=== PATIENT | female | born 1990 | race Caucasian/White ===

== ENCOUNTER 2016-05-29 15:54 | Emergency (ER) | payer BC, OTHER ==
[2016-05-29] MEDS ORDERED: KETOROLAC 30 MG/ML VIAL (J1885) As Ordered ONE (16:47)
[2016-05-29] MEDS ORDERED: ONDANSETRON 4MG/2ML VIAL (J2405) As Ordered ONE (16:47)
[2016-05-29 17:39] LABS: BASO % 0.2 % (0.0-1.0); EOS # 0.1 K/mm3 (0.0-0.50); LARGE UNSTAINED CELL # 0.1 K/mm3 (0.0-0.4); LARGE UNSTAINED CELL % 1.5 % (0.0-4.0); LYMPH # 1.4 K/mm3 (1.5-6.5); MEAN CORPUSCULAR HEMOGLOBIN 32.2 pg (27.0-33.0); MEAN CORPUSCULAR HGB CONC 35.8 g/dl (32.0-36.5); MEAN CORPUSCULAR VOLUME 90.1 fl (80.0-96.0); MONO # 0.3 K/mm3 (0.0-0.8); MONO % 4.7 % (0.0-5.0); NEUTROPHILS # 3.5 K/mm3 (1.8-7.7); NEUTROPHILS % 65.6 % (36.0-66.0); PLATELET COUNT, AUTOMATED 191 k/mm3 (150-450); RED CELL DISTRIBUTION WIDTH 12.3 % (11.5-14.5); WHITE BLOOD COUNT 5.3 K/mm3 (4.0-10.0)
[2016-05-29 18:09] LABS: ALBUMIN 3.8 GM/DL (3.2-5.2); ALBUMIN/GLOBULIN RATIO 1.12 (1.00-1.93); ALKALINE PHOSPHATASE 68 U/L (45-117); ALT/SGPT 21 U/L (12-78); AMYLASE 41 U/L (25-115); ANION GAP 9 MEQ/L (8-16); AST/SGOT 14 U/L (15-37); BILIRUBIN,DIRECT 0.1 MG/DL (0.0-0.2); BILIRUBIN,TOTAL 0.4 MG/DL (0.2-1.0); BLOOD UREA NITROGEN 10 MG/DL (7-18); CALCIUM LEVEL 8.9 MG/DL (8.5-10.1); CARBON DIOXIDE LEVEL 24 MEQ/L (21-32); CHLORIDE LEVEL 110 MEQ/L (98-107); CREATININE FOR GFR 0.85 MG/DL (0.55-1.02); GLOMERULAR FILTRATION RATE > 60.0 (>60); GLUCOSE, FASTING 103 MG/DL (70-105); POTASSIUM SERUM 4.1 MEQ/L (3.5-5.1); SODIUM LEVEL 143 MEQ/L (136-145); TOTAL PROTEIN 7.2 GM/DL (6.4-8.2)
--- NOTE | 2016-05-29 18:30 | REP ---
RIGHT UPPER QUADRANT ULTRASOUND: Real-time sonographic evaluation of the right upper extremity is performed. The gallbladder demonstrates no evidence of intraluminal sludge or calculi, wall thickening or pericholecystic fluid. There is no intrahepatic or extrahepatic biliary dilatation, common bile duct measuring 2 mm in diameter. Liver and pancreas demonstrate no gross mass, pancreas is not optimally seen due to overlying bowel gas. Right kidney demonstrates no hydronephrosis or nephrolithiasis with normal size at 9.4 cm in length. IMPRESSION: Negative right upper quadrant ultrasound. Signed by Javi Pandya MD 05/29/2016 07:17 P
--- NOTE | 2016-05-29 18:33 | EDDOCDS ---
Physician Documentation [facility] Name: Piedad Smith Age: 25 yrs Sex: Female : 1990 Arrival Date: 05/29/2016 Time: 15:54 Bed I6 / 28 Private MD: Marielle Black Disposition: 05/29/16 18:19 Discharged to Home/Self Care. Impression: Other abdominal pain - Right-sided. - Condition is Stable. - Discharge Instructions: Abdominal Pain, Adult, [id number]-[id number]. - Prescriptions for Bentyl 20 mg Oral Tablet - take 1 tablet by ORAL route every 6 hours As needed; 20 tablet. Naprosyn 500 mg Oral Tablet - take 1 tablet by ORAL route 2 times per day take with food; 30 tablet. ZOFRAN ODT 4 mg - dissolve 1 tablet by ORAL route 4 times per day As needed do not chew, do not swallow whole; 10 tablet. - Medication Reconciliation, Local Pharmacy Hours form. - Follow up: Marielle Black; When: 1 - 2 days; Reason: Recheck today's complaints, Continuance of care. Follow up: Emergency Department; Reason: Worsening of conditions. Follow up: Javi Quintanilla; When: Call to arrange an appointment; Reason: Further diagnostic work-up, Recheck today's complaints, Continuance of care. - Problem is new. - Symptoms have improved. Historical: - Allergies: Tofranil (Hives); Ditropan (Hives); Ceclor (Hives); Amoxicillin (Hives); - Home Meds: 1. venlafaxine 75 mg oral tab 1 tab once daily (Last dose: 05/27/2016) - PMHx: Colitis; - PSHx: none; - Social history: Smoking status: Patient uses tobacco products, current every day smoker. No barriers to communication noted, The patient speaks fluent Greek, Speaks appropriately for age. - Family history: Not pertinent. - : The pt / caregiver states he / she is not on anticoagulants. Home medication list is obtained from the patient. - Exposure Risk Screening:: None identified. 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 11 in. (149.86 cm) (R); 18:03 BP 107 / 73; Pulse 77; Resp 18; Temp 98.3(O); Pulse Ox 99% on R/A; Pain 0/10; kc3 15:55 Body Mass Index 29.29 (65.77 kg, 149.86 cm) dd6 MDM: 16:34 NS 0.9% 1000 ml IV at bolus once ordered. ef1 16:34 Ondansetron 4 mg IVP once ordered. ef1 16:34 ketorolac 30 mg IVP once ordered. ef1 16:34 IV Saline Lock ordered. ef1 16:34 Undress patient appropriately for examination ordered. ef1 16:34 UCG by Nursing ordered. ef1 16:35 Amylase Ordered. EDMS 16:35 Basic Metabolic Profile Ordered. EDMS 16:35 CBC with Diff Ordered. EDMS 16:35 Lipase Ordered. EDMS 16:35 Liver Profile Ordered. EDMS 16:35 Urinalysis Ordered. EDMS 16:35 Urine Culture Ordered. EDMS 16:35 Gallbladder US Ordered. EDMS 16:36 CT ABD & PELVIS: No Contrast Ordered. EDMS 16:36 NOTHING BY MOUTH+DIET ordered. EDMS 17:03 [facility] [place] was scanned into [employer] and attached to record. dm19 17:03 Financial registration complete. dm19 17:56 CBC with Diff Reviewed. ef1 17:56 Urinalysis Reviewed. ef1 18:15 Basic Metabolic Profile Reviewed. ef1 18:15 Liver Profile Reviewed. ef1 18:15 Amylase Reviewed. ef1 18:15 Lipase Reviewed. ef1 Point of Care Testing: Urine : 16:47 hCG Reading: Negative; Control Reading: Positive; rs6 Ranges: Administered Medications: 17:15 Drug: NS 0.9% 1000 ml [sodium chloride 0.9 % injection solution] Route: IV; Rate: dsf bolus; Site: right antecubital; 18:29 Follow up: IV Status: Infusion discontinued kc3 17:16 Drug: Ondansetron 4 mg [ondansetron HCl 2 mg/mL intravenous solution (2 mL)] Route: dsf IVP; Site: right antecubital; 17:16 Drug: ketorolac 30 mg [ketorolac 30 mg/mL (1 mL) injection solution (1 mL)] Route: IVP; dsf Site: right antecubital; Signatures: Dispatcher [employer] Daniela Mak PA-C PA-C ef1 Chantal GonsalezRN RN Simona Vanegas RN RN kc3 Grace Resendiz dm19 Valeria Chavez RN dsf The chart was reviewed and I authenticate all verbal orders and agree with the evaluation and treatment provided.Attachments: 17:03 [facility] Payment Agreement dm19 MTDD
--- NOTE | 2016-05-29 18:33 | EDDOCDS ---
Nurse's Notes [facility] Name: Piedad Smith Age: 25 yrs Sex: Female : 1990 Arrival Date: 05/29/2016 Time: 15:54 Bed I6 Private MD: Marielle Black Diagnosis: Other abdominal [id number] Presentation: 05/29 15:56 Presenting complaint: Patient states: pt c/o right sided abdominal pain, onset six ead months ago, worsening today. reports nausea, denies vomiting. Risk factors: the patient reports no vaginal bleeding. Adult Sepsis Screening: The patient does not have new or worsening altered mentation. Patient's respiratory rate is less than 22. Systolic blood pressure is greater than 100. Patient has a qSOFA score of 0- Negative Sepsis Screen. Suicide/Homicide risk assessment- the patient denies having any suicidal and/or homicidal ideations and does not present with any other emotional, behavioral or mental health complaints. Status: Patient is not a service car driver or dependent. Transition of care: patient was not received from another setting of care. 15:56 Acuity: SAM Level 3 ead 15:56 Method Of Arrival: Walkin/Carried/Asstd ead Triage Assessment: 15:57 General: Appears in no apparent distress, Behavior is appropriate for age, cooperative. ead Pain: Location: abdomen Pain currently is 5 out of 10 on a pain scale. HIV screening NA for this visit Offered previously. Neurological: No deficits noted. Respiratory: Airway is patent Respiratory effort is even, unlabored. GI: Reports lower abdominal pain, nausea. : Denies burning with urination, pain with urination vaginal bleeding. Derm: Skin is pink, warm & dry. 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 venlafaxine 75 mg oral tab 1 tab once daily (Last dose: 05/27/2016) - PMHx: Colitis; - PSHx: none; - Social history: Smoking status: Patient uses tobacco products, current every day smoker. No barriers to communication noted, The patient speaks fluent Belgian, Speaks appropriately for age. - Family history: Not pertinent. - : The pt / caregiver states he / she is not on anticoagulants. Home medication list is obtained from the patient. - Exposure Risk Screening:: None identified. Screenin:29 Screening information is obtained from the patient. Fall risk: No risks identified. kc3 Assistance ADL's: requires no assistance with activities of daily living. Abuse/DV Screen: The patient / caregiver reports he/she is: not in a situation that causes fear, pain or injury. Nutritional screening: No deficits noted. Advance Directives: Currently, there is no health care proxy. home support is adequate. Assessment: 17:28 General: Appears in no apparent distress, comfortable, Behavior is appropriate for age, kc3 cooperative. Pain: Location: right upper quadrant Pain currently is 4 out of 10 on a pain scale. Neurological: Level of Consciousness is awake, alert, obeys commands, Oriented to person, place, time. Respiratory: Respiratory effort is even, unlabored. GI: Abdomen is flat, Bowel sounds present X 4 quads. Abd is soft and non tender X 4 quads. Reports nausea, vomiting. Derm: Skin is pink, warm & dry. 17:56 Adult Sepsis Screening: The patient does not have new or worsening altered mentation. kc3 Patient's respiratory rate is less than 22. Systolic blood pressure is greater than 100. Patient has a qSOFA score of 0- Negative Sepsis Screen. 18:30 General: Appears in no apparent distress, comfortable, Behavior is appropriate for age, kc3 cooperative. Pain: Denies pain. Neurological: Level of Consciousness is awake, alert, obeys commands, Oriented to person, place, time. Respiratory: Respiratory effort is even, unlabored. Derm: Skin is pink, warm & dry. Vital Signs: 15:55 BP 154 / 82; Pulse 82; Resp 18 S; Temp 97.7(O); Pulse Ox 100% on R/A; Weight 65.77 kg dd6 (R); Height 4 ft. 11 in. (149.86 cm) (R); 18:03 BP 107 / 73; Pulse 77; Resp 18; Temp 98.3(O); Pulse Ox 99% on R/A; Pain 0/10; kc3 15:55 Body Mass Index 29.29 (65.77 kg, 149.86 cm) dd6 Vitals: 15:55 Log In Time: May 29, 2016 at 15:53. dd6 ED Course: 15:55 Patient visited by Owen Chavez PCA. dd6 15:55 Marielle Black is Private Physician. dd6 15:55 Patient moved to Waiting dd6 15:56 Patient moved to Pre RCE dd6 15:57 Triage Initiated ead 15:59 Patient moved to Triage 1 ead 16:21 Daniela Lopez [facility]-C [facility]. ef1 16:21 Antonette Cruz MD is Attending Physician. ef1 16:21 Patient visited by Daniela Lopez PA-C. ef1 16:42 Urinalysis Sent. rs6 16:42 Urine Culture Sent. rs6 16:43 Patient moved to 24 ttb 16:44 Patient moved to I6 / 28 dsf 16:46 Patient moved to Ultrasound hgl 16:47 Patient visited by Dilcia Pat PCA. rs6 16:58 Patient moved to I6 / 28 hgl 17:03 [facility] Payment Agreement was scanned into [employer] and attached to record. dm19 17:16 Inserted saline lock: 20 gauge in right antecubital area The patient tolerated the dsf procedure well. 17:28 Patient visited by Simona Khan RN. kc3 17:28 Amylase Sent. kc3 17:28 Basic Metabolic Profile Sent. kc3 17:28 CBC with Diff Sent. kc3 17:28 Lipase Sent. kc3 17:28 Liver Profile Sent. kc3 17:30 Patient visited by Simona Khan RN. kc3 17:30 The patient / caregiver is instructed regarding the plan of care and ED course. kc3 17:55 Patient visited by Daniela Lopez PA-C. ef1 18:04 Patient visited by Simona Khan RN. kc3 18:19 Marielle Black is Referral Physician. ef1 18:19 Javi Quintanilla DO is Referral Physician. ef1 18:30 Discontinued IV lock intact, bleeding controlled, pressure dressing applied, No kc3 redness/swelling at site. No procedures done that require assistance. Administered Medications: 17:15 Drug: NS 0.9% 1000 ml [sodium chloride 0.9 % injection solution] Route: IV; Rate: dsf bolus; Site: right antecubital; 18:29 Follow up: IV Status: Infusion discontinued kc3 17:16 Drug: Ondansetron 4 mg [ondansetron HCl 2 mg/mL intravenous solution (2 mL)] Route: dsf IVP; Site: right antecubital; 17:16 Drug: ketorolac 30 mg [ketorolac 30 mg/mL (1 mL) injection solution (1 mL)] Route: IVP; dsf Site: right antecubital; Point of Care Testing: Urine : 16:47 hCG Reading: Negative; Control Reading: Positive; rs6 Ranges: Order Results: Lab Order: Amylase; SPEC'M 05/29/16 17:23 Test: AMYLASE; Value: 41; Range: 25-115; Units: U/L; Status: F Lab Order: Basic Metabolic Profile; SPEC'M 05/29/16 17:23 Test: GLUCOSE, FASTING; Value: 103; Range: 70-105; Units: MG/DL; Status: F Test: BLOOD UREA NITROGEN; Value: 10; Range: 7-18; Units: MG/DL; Status: F Test: CREATININE FOR GFR; Value: 0.85; Range: 0.55-1.02; Units: MG/DL; Status: F Test: GLOMERULAR FILTRATION RATE; Value: > 60.0; Range: >60; Status: F Test: SODIUM LEVEL; Value: 143; Range: 136-145; Units: MEQ/L; Status: F Test: POTASSIUM SERUM; Value: 4.1; Range: 3.5-5.1; Units: MEQ/L; Status: F Test: CHLORIDE LEVEL; Value: 110; Range: 98-107; Abnormal: Above high normal; Units: MEQ/L; Status: F Test: CARBON DIOXIDE LEVEL; Value: 24; Range: 21-32; Units: MEQ/L; Status: F Test: ANION GAP; Value: 9; Range: 8-16; Units: MEQ/L; Status: F Test: CALCIUM LEVEL; Value: 8.9; Range: 8.5-10.1; Units: MG/DL; Status: F Test Note: ; Units are mL/min/1.73 m2 Chronic Kidney Disease Staging per NKF: Stage I & II GFR >=60 Normal to Mildly Decreased Stage III GFR 30-59 Moderately Decreased Stage IV GFR 15-29 Severely Decreased Stage V GFR <15 Very Little GFR Left ESRD GFR <15 on SOCIAL INSURANCE ADVISER Lab Order: CBC with Diff; SPEC'M 05/29/16 17:23 Test: WHITE BLOOD COUNT; Value: 5.3; Range: 4.0-10.0; Units: K/mm3; Status: F Test: RED BLOOD COUNT; Value: 4.39; Range: 4.00-5.40; Units: M/mm3; Status: F Test: HEMOGLOBIN; Value: 14.1; Range: 12.0-16.0; Units: g/dl; Status: F Test: HEMATOCRIT; Value: 39.5; Range: 36.0-47.0; Units: %; Status: F Test: MEAN CORPUSCULAR VOLUME; Value: 90.1; Range: 80.0-96.0; Units: fl; Status: F Test: MEAN CORPUSCULAR HEMOGLOBIN; Value: 32.2; Range: 27.0-33.0; Units: pg; Status: F Test: MEAN CORPUSCULAR HGB CONC; Value: 35.8; Range: 32.0-36.5; Units: g/dl; Status: F Test: RED CELL DISTRIBUTION WIDTH; Value: 12.3; Range: 11.5-14.5; Units: %; Status: F Test: PLATELET COUNT, AUTOMATED; Value: 191; Range: 150-450; Units: k/mm3; Status: F Test: NEUTROPHILS %; Value: 65.6; Range: 36.0-66.0; Units: %; Status: F Test: LYMPH %; Value: 26.0; Range: 24.0-44.0; Units: %; Status: F Test: MONO %; Value: 4.7; Range: 0.0-5.0; Units: %; Status: F Test: EOS %; Value: 2.0; Range: 0.0-3.0; Units: %; Status: F Test: BASO %; Value: 0.2; Range: 0.0-1.0; Units: %; Status: F Test: LARGE UNSTAINED CELL %; Value: 1.5; Range: 0.0-4.0; Units: %; Status: F Test: NEUTROPHILS #; Value: 3.5; Range: 1.8-7.7; Units: K/mm3; Status: F Test: LYMPH #; Value: 1.4; Range: 1.5-6.5; Abnormal: Below low normal; Units: K/mm3; Status: F Test: MONO #; Value: 0.3; Range: 0.0-0.8; Units: K/mm3; Status: F Test: EOS #; Value: 0.1; Range: 0.0-0.50; Units: K/mm3; Status: F Test: BASO #; Value: 0.0; Range: 0.0-0.2; Units: K/mm3; Status: F Test: LARGE UNSTAINED CELL #; Value: 0.1; Range: 0.0-0.4; Units: K/mm3; Status: F Lab Order: Lipase; [facility] 05/29/16 17:23 Test: LIPASE; Value: 101; Range: 73-393; Units: U/L; Status: F Lab Order: Liver Profile; [facility] 05/29/16 17:23 Test: AST/SGOT; Value: 14; Range: 15-37; Abnormal: Below low normal; Units: U/L; Status: F Test: ALT/SGPT; Value: 21; Range: 12-78; Units: U/L; Status: F Test: ALKALINE PHOSPHATASE; Value: 68; Range: 45-117; Units: U/L; Status: F Test: BILIRUBIN,TOTAL; Value: 0.4; Range: 0.2-1.0; Units: MG/DL; Status: F Test: BILIRUBIN,DIRECT; Value: 0.1; Range: 0.0-0.2; Units: MG/DL; Status: F Test: TOTAL PROTEIN; Value: 7.2; Range: 6.4-8.2; Units: GM/DL; Status: F Test: ALBUMIN; Value: 3.8; Range: 3.2-5.2; Units: GM/DL; Status: F Test: ALBUMIN/GLOBULIN RATIO; Value: 1.12; Range: 1.00-1.93; Status: F Lab Order: Urinalysis; [facility] 05/29/16 16:41 Test: APPEARANCE, URINE; Value: CLEAR; Range: CLEAR; Status: F Test: COLOR, URINE; Value: STRAW; Range: YELLOW; Status: F Test: PH,URINE; Value: 7.0; Range: 5.0-9.0; Units: UNITS; Status: F Test: SPECIFIC GRAVITY URINE AUTO; Value: 1.011; Range: 1.002-1.035; Status: F Test: PROTEIN, URINE AUTO; Value: NEGATIVE; Range: NEGATIVE; Units: mg/dL; Status: F Test: GLUCOSE, URINE (UA) AUTO; Value: NEGATIVE; Range: NEGATIVE; Units: mg/dL; Status: F Test: KETONE, URINE AUTO; Value: NEGATIVE; Range: NEGATIVE; Units: mg/dL; Status: F Test: UROBILINOGEN, URINE AUTO; Value: 0.2; Range: 0.0-2.0; Units: mg/dL; Status: F Test: BILIRUBIN, URINE AUTO; Value: NEGATIVE; Range: NEGATIVE; Status: F Test: NITRITE, URINE AUTO; Value: NEGATIVE; Range: NEGATIVE; Status: F Test: LEUKOCYTE ESTERASE, URINE AUTO; Value: NEGATIVE; Range: NEGATIVE; Status: F Test: BLOOD, URINE BLOOD; Value: 1+; Range: NEGATIVE; Abnormal: Above high normal; Status: F Test: WBC, URINE AUTO; Value: 1; Range: 0-3; Units: /HPF; Status: F Test: RBC, URINE AUTO; Value: 1; Range: 0-3; Units: /HPF; Status: F Test: BACTERIA, URINE AUTO; Value: NEGATIVE; Range: NEGATIVE; Status: F Test: SQUAMOUS EPITHELIAL CELL UR AU; Value: 1; Range: 0-6; Units: /HPF; Status: F Test: HYALINE CAST, URINE AUTO; Value: 0; Range: 0-1; Units: /LPF; Status: F Outcome: 17:30 CT Study completed. Ultrasound Study completed. kc3 18:19 Discharge ordered by Provider. ef1 18:30 Discharge Assessment: Patient awake, alert and oriented x 3. No cognitive and/or kc3 functional deficits noted. Patient verbalized understanding of disposition instructions. patient administered narcotics - no. 18:31 The following High Risk Discharge criteria are identified: None. Discharged to home. kc3 Condition: stable. Discharge instructions given to patient, Instructed on discharge instructions, follow up and referral plans. medication usage, Demonstrated understanding of instructions, medications, Pt was receptive of discharge instructions/ teaching. Prescriptions given X 3. Property :Personal belongings accompany Pt. 18:31 Patient left the ED. kc3 Signatures: Owen Chavez, BENCH SHEAR OPERATOR BENCH SHEAR OPERATOR dd6 Daniela Lopez PA-C PA-C ef1 Valeria Chavez,RN RN nancyf Fran Lamb Teresa, RN RN Chantal Conroy,RN RN Dilcia Meyer, BENCH SHEAR OPERATOR BENCH SHEAR OPERATOR rs6 Simona Khan RN RN kc3 Grace Resendiz dm19 Corrections: (The following items were deleted from the chart) 18: 18:30 Discharge Assessment: Patient awake, alert and oriented x 3. No cognitive and/or kc3 functional deficits noted. Patient verbalized understanding of disposition instructions. patient administered narcotics - kc3 MTDD
--- NOTE | 2016-05-29 18:50 | REP ---
CT ABDOMEN AND PELVIS WITHOUT CONTRAST: TECHNIQUE: Axial noncontrast images through the abdomen followed by contrast-enhanced images through the abdomen and pelvis using 100 mL Isovue 370 intravenous contrast material, with coronal and sagittal reformations. Visualized lung bases are clear. The liver, spleen, adrenals, pancreas, kidneys and gallbladder are unremarkable. There is no evidence of hydroureteronephrosis. There is no evidence of renal, ureteral, or bladder calculus. There is no abdominal aortic aneurysm. There is no free air. There is no bowel wall thickening. There is no evidence of appendicitis. There is no gross pelvic mass. There is mild free fluid in the pelvis. Urinary bladder is very mildly distended and grossly unremarkable. Visualized osseous structures appear unremarkable. IMPRESSION: Mild free fluid in the pelvis, otherwise negative noncontrast CT abdomen and pelvis. No evidence of appendicitis. No evidence of renal, ureteral or bladder calculus and no hydroureteronephrosis. Signed by Javi Pandya MD 05/29/2016 07:17 P
--- NOTE | 2016-05-31 19:33 | EDDOCDS ---
Physician Documentation [facility] Name: Piedad Smith Age: 25 yrs Sex: Female : 1990 Arrival Date: 05/29/2016 Time: 15:54 Bed I6 / 28 Private MD: Marielle Black Disposition: 05/29/16 18:19 Discharged to Home/Self Care. Impression: Other abdominal pain - Right-sided. - Condition is Stable. - Discharge Instructions: Abdominal Pain, Adult, [id number]. - Prescriptions for Bentyl 20 mg Oral Tablet - take 1 tablet by ORAL route every 6 hours As needed; 20 tablet. Naprosyn 500 mg Oral Tablet - take 1 tablet by ORAL route 2 times per day take with food; 30 tablet. ZOFRAN ODT 4 mg - dissolve 1 tablet by ORAL route 4 times per day As needed do not chew, do not swallow whole; 10 tablet. - Medication Reconciliation, Local Pharmacy Hours form. - Follow up: Marielle Black; When: 1 - 2 days; Reason: Recheck today's complaints, Continuance of care. Follow up: Emergency Department; Reason: Worsening of conditions. Follow up: Javi Quintanilla; When: Call to arrange an appointment; Reason: Further diagnostic work-up, Recheck today's complaints, Continuance of care. - Problem is new. - Symptoms have improved. Historical: - Allergies: Tofranil (Hives); Ditropan (Hives); Ceclor (Hives); Amoxicillin (Hives); - Home Meds: 1. venlafaxine 75 mg oral tab 1 tab once daily (Last dose: 05/27/2016) - PMHx: Colitis; - PSHx: none; - Social history: Smoking status: Patient uses tobacco products, current every day smoker. No barriers to communication noted, The patient speaks fluent Croatian, Speaks appropriately for age. - Family history: Not pertinent. - : The pt / caregiver states he / she is not on anticoagulants. Home medication list is obtained from the patient. - Exposure Risk Screening:: None identified. 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 11 in. (149.86 cm) (R); 18:03 BP 107 / 73; Pulse 77; Resp 18; Temp 98.3(O); Pulse Ox 99% on R/A; Pain 0/10; kc3 15:55 Body Mass Index 29.29 (65.77 kg, 149.86 cm) dd6 MDM: 16:34 NS 0.9% 1000 ml IV at bolus once ordered. ef1 16:34 Ondansetron 4 mg IVP once ordered. ef1 16:34 ketorolac 30 mg IVP once ordered. ef1 16:34 IV Saline Lock ordered. ef1 16:34 Undress patient appropriately for examination ordered. ef1 16:34 UCG by Nursing ordered. ef1 16:35 Amylase Ordered. EDMS 16:35 Basic Metabolic Profile Ordered. EDMS 16:35 CBC with Diff Ordered. EDMS 16:35 Lipase Ordered. EDMS 16:35 Liver Profile Ordered. EDMS 16:35 Urinalysis Ordered. EDMS 16:35 Urine Culture Ordered. EDMS 16:35 Gallbladder US Ordered. EDMS 16:36 CT ABD & PELVIS: No Contrast Ordered. EDMS 16:36 NOTHING BY MOUTH+DIET ordered. EDMS 17:03 [facility] [place] Agreement was scanned into [employer] and attached to record. dm19 17:03 Financial registration complete. dm19 17:56 CBC with Diff Reviewed. ef1 17:56 Urinalysis Reviewed. ef1 18:15 Basic Metabolic Profile Reviewed. ef1 18:15 Liver Profile Reviewed. ef1 18:15 Amylase Reviewed. ef1 18:15 Lipase Reviewed. ef1 05/31 08:43 T-Sheet-- Draft Copy was scanned into [employer] and attached to record. gb Point of Care Testing: Urine : 05/29 16:47 hCG Reading: Negative; Control Reading: Positive; rs6 Ranges: Administered Medications: 17:15 Drug: NS 0.9% 1000 ml [sodium chloride 0.9 % injection solution] Route: IV; Rate: dsf bolus; Site: right antecubital; 18:29 Follow up: IV Status: Infusion discontinued kc3 17:16 Drug: Ondansetron 4 mg [ondansetron HCl 2 mg/mL intravenous solution (2 mL)] Route: dsf IVP; Site: right antecubital; 17:16 Drug: ketorolac 30 mg [ketorolac 30 mg/mL (1 mL) injection solution (1 mL)] Route: IVP; dsf Site: right antecubital; Signatures: Dispatcher [employer] EDMS Dennise Minaya, Reg Reg gb John, Daniela, YAMILETH PAMike ef1 Chantal Gonsalez RN RN Simona Vanegas RN RN kc3 Grace Resendiz dm19 Valeria Chavez RN dsf The chart was reviewed and I authenticate all verbal orders and agree with the evaluation and treatment provided.Attachments: 17:03 [facility] Payment Agreement dm19 05/31 08:43 T-Sheet-- Draft Copy gb Chart Complete MTDD
--- NOTE | 2016-05-31 19:33 | EDDOCDS ---
Nurse's Notes [facility] Name: Piedad Smith Age: 25 yrs Sex: Female : 1990 Arrival Date: 05/29/2016 Time: 15:54 Bed I6 Private MD: Marielle Black Diagnosis: Other abdominal onhq-[id number]-gyqqm Presentation: 05/29 15:56 Presenting complaint: Patient states: pt c/o right sided abdominal pain, onset six ead months ago, worsening today. reports nausea, denies vomiting. Risk factors: the patient reports no vaginal bleeding. Adult Sepsis Screening: The patient does not have new or worsening altered mentation. Patient's respiratory rate is less than 22. Systolic blood pressure is greater than 100. Patient has a qSOFA score of 0- Negative Sepsis Screen. Suicide/Homicide risk assessment- the patient denies having any suicidal and/or homicidal ideations and does not present with any other emotional, behavioral or mental health complaints. Status: Patient is not a service liaison representative or dependent. Transition of care: patient was not received from another setting of care. 15:56 Acuity: SAM Level 3 ead 15:56 Method Of Arrival: Walkin/Carried/Asstd ead Triage Assessment: 15:57 General: Appears in no apparent distress, Behavior is appropriate for age, cooperative. ead Pain: Location: abdomen Pain currently is 5 out of 10 on a pain scale. HIV screening NA for this visit Offered previously. Neurological: No deficits noted. Respiratory: Airway is patent Respiratory effort is even, unlabored. GI: Reports lower abdominal pain, nausea. : Denies burning with urination, pain with urination vaginal bleeding. Derm: Skin is pink, warm & dry. 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 venlafaxine 75 mg oral tab 1 tab once daily (Last dose: 05/27/2016) - PMHx: Colitis; - PSHx: none; - Social history: Smoking status: Patient uses tobacco products, current every day smoker. No barriers to communication noted, The patient speaks fluent Faroese, Speaks appropriately for age. - Family history: Not pertinent. - : The pt / caregiver states he / she is not on anticoagulants. Home medication list is obtained from the patient. - Exposure Risk Screening:: None identified. Screenin:29 Screening information is obtained from the patient. Fall risk: No risks identified. kc3 Assistance ADL's: requires no assistance with activities of daily living. Abuse/DV Screen: The patient / caregiver reports he/she is: not in a situation that causes fear, pain or injury. Nutritional screening: No deficits noted. Advance Directives: Currently, there is no health care proxy. home support is adequate. Assessment: 17:28 General: Appears in no apparent distress, comfortable, Behavior is appropriate for age, kc3 cooperative. Pain: Location: right upper quadrant Pain currently is 4 out of 10 on a pain scale. Neurological: Level of Consciousness is awake, alert, obeys commands, Oriented to person, place, time. Respiratory: Respiratory effort is even, unlabored. GI: Abdomen is flat, Bowel sounds present X 4 quads. Abd is soft and non tender X 4 quads. Reports nausea, vomiting. Derm: Skin is pink, warm & dry. 17:56 Adult Sepsis Screening: The patient does not have new or worsening altered mentation. kc3 Patient's respiratory rate is less than 22. Systolic blood pressure is greater than 100. Patient has a qSOFA score of 0- Negative Sepsis Screen. 18:30 General: Appears in no apparent distress, comfortable, Behavior is appropriate for age, kc3 cooperative. Pain: Denies pain. Neurological: Level of Consciousness is awake, alert, obeys commands, Oriented to person, place, time. Respiratory: Respiratory effort is even, unlabored. Derm: Skin is pink, warm & dry. Vital Signs: 15:55 BP 154 / 82; Pulse 82; Resp 18 S; Temp 97.7(O); Pulse Ox 100% on R/A; Weight 65.77 kg dd6 (R); Height 4 ft. 11 in. (149.86 cm) (R); 18:03 BP 107 / 73; Pulse 77; Resp 18; Temp 98.3(O); Pulse Ox 99% on R/A; Pain 0/10; kc3 15:55 Body Mass Index 29.29 (65.77 kg, 149.86 cm) dd6 Vitals: 15:55 Log In Time: May 29, 2016 at 15:53. dd6 ED Course: 15:55 Patient visited by Owen Chavez PCA. dd6 15:55 Marielle Black is Private Physician. dd6 15:55 Patient moved to Waiting dd6 15:56 Patient moved to Pre RCE dd6 15:57 Triage Initiated ead 15:59 Patient moved to Triage 1 ead 16:21 Daniela Lopez PA-C is PHCP. ef1 16:21 Antonette Cruz MD is Attending Physician. ef1 16:21 Patient visited by Daniela Lopez PA-C. ef1 16:42 Urinalysis Sent. rs6 16:42 Urine Culture Sent. rs6 16:43 Patient moved to 24 ttb 16:44 Patient moved to I6 / 28 dsf 16:46 Patient moved to Ultrasound hgl 16:47 Patient visited by Dilcia Pat PCA. rs6 16:58 Patient moved to I6 / 28 hgl 17:03 [facility] Payment Agreement was scanned into [employer] and attached to record. dm19 17:16 Inserted saline lock: 20 gauge in right antecubital area The patient tolerated the dsf procedure well. 17:28 Patient visited by Simona Khan RN. kc3 17:28 Amylase Sent. kc3 17:28 Basic Metabolic Profile Sent. kc3 17:28 CBC with Diff Sent. kc3 17:28 Lipase Sent. kc3 17:28 Liver Profile Sent. kc3 17:30 Patient visited by Simona Khan RN. kc3 17:30 The patient / caregiver is instructed regarding the plan of care and ED course. kc3 17:55 Patient visited by Daniela Lopez PA-C. ef1 18:04 Patient visited by Simona Khan RN. kc3 18:19 Marielle Black is Referral Physician. ef1 18:19 Javi Quintanilla DO is Referral Physician. ef1 18:30 Discontinued IV lock intact, bleeding controlled, pressure dressing applied, No kc3 redness/swelling at site. No procedures done that require assistance. 19:14 Gallbladder US Returned. EDMS 19:14 CT ABD & PELVIS: No Contrast Returned. EDMS 05/31 08:43 T-Sheet-- Draft Copy was scanned into [employer] and attached to record. gb Administered Medications: 05/29 17:15 Drug: NS 0.9% 1000 ml [sodium chloride 0.9 % injection solution] Route: IV; Rate: dsf bolus; Site: right antecubital; 18:29 Follow up: IV Status: Infusion discontinued kc3 17:16 Drug: Ondansetron 4 mg [ondansetron HCl 2 mg/mL intravenous solution (2 mL)] Route: dsf IVP; Site: right antecubital; 17:16 Drug: ketorolac 30 mg [ketorolac 30 mg/mL (1 mL) injection solution (1 mL)] Route: IVP; dsf Site: right antecubital; Point of Care Testing: Urine : 16:47 hCG Reading: Negative; Control Reading: Positive; rs6 Ranges: Order Results: Lab Order: Amylase; SPEC'M 05/29/16 17:23 Test: AMYLASE; Value: 41; Range: 25-115; Units: U/L; Status: F Lab Order: Basic Metabolic Profile; SPEC'M 05/29/16 17:23 Test: GLUCOSE, FASTING; Value: 103; Range: 70-105; Units: MG/DL; Status: F Test: BLOOD UREA NITROGEN; Value: 10; Range: 7-18; Units: MG/DL; Status: F Test: CREATININE FOR GFR; Value: 0.85; Range: 0.55-1.02; Units: MG/DL; Status: F Test: GLOMERULAR FILTRATION RATE; Value: > 60.0; Range: >60; Status: F Test: SODIUM LEVEL; Value: 143; Range: 136-145; Units: MEQ/L; Status: F Test: POTASSIUM SERUM; Value: 4.1; Range: 3.5-5.1; Units: MEQ/L; Status: F Test: CHLORIDE LEVEL; Value: 110; Range: 98-107; Abnormal: Above high normal; Units: MEQ/L; Status: F Test: CARBON DIOXIDE LEVEL; Value: 24; Range: 21-32; Units: MEQ/L; Status: F Test: ANION GAP; Value: 9; Range: 8-16; Units: MEQ/L; Status: F Test: CALCIUM LEVEL; Value: 8.9; Range: 8.5-10.1; Units: MG/DL; Status: F Test Note: ; Units are mL/min/1.73 m2 Chronic Kidney Disease Staging per NKF: Stage I & II GFR >=60 Normal to Mildly Decreased Stage III GFR 30-59 Moderately Decreased Stage IV GFR 15-29 Severely Decreased Stage V GFR <15 Very Little GFR Left ESRD GFR <15 on ENGINE SPECIALIST Lab Order: CBC with Diff; TITA'Jose 05/29/16 17:23 Test: WHITE BLOOD COUNT; Value: 5.3; Range: 4.0-10.0; Units: K/mm3; Status: F Test: RED BLOOD COUNT; Value: 4.39; Range: 4.00-5.40; Units: M/mm3; Status: F Test: HEMOGLOBIN; Value: 14.1; Range: 12.0-16.0; Units: g/dl; Status: F Test: HEMATOCRIT; Value: 39.5; Range: 36.0-47.0; Units: %; Status: F Test: MEAN CORPUSCULAR VOLUME; Value: 90.1; Range: 80.0-96.0; Units: fl; Status: F Test: MEAN CORPUSCULAR HEMOGLOBIN; Value: 32.2; Range: 27.0-33.0; Units: pg; Status: F Test: MEAN CORPUSCULAR HGB CONC; Value: 35.8; Range: 32.0-36.5; Units: g/dl; Status: F Test: RED CELL DISTRIBUTION WIDTH; Value: 12.3; Range: 11.5-14.5; Units: %; Status: F Test: PLATELET COUNT, AUTOMATED; Value: 191; Range: 150-450; Units: k/mm3; Status: F Test: NEUTROPHILS %; Value: 65.6; Range: 36.0-66.0; Units: %; Status: F Test: LYMPH %; Value: 26.0; Range: 24.0-44.0; Units: %; Status: F Test: MONO %; Value: 4.7; Range: 0.0-5.0; Units: %; Status: F Test: EOS %; Value: 2.0; Range: 0.0-3.0; Units: %; Status: F Test: BASO %; Value: 0.2; Range: 0.0-1.0; Units: %; Status: F Test: LARGE UNSTAINED CELL %; Value: 1.5; Range: 0.0-4.0; Units: %; Status: F Test: NEUTROPHILS #; Value: 3.5; Range: 1.8-7.7; Units: K/mm3; Status: F Test: LYMPH #; Value: 1.4; Range: 1.5-6.5; Abnormal: Below low normal; Units: K/mm3; Status: F Test: MONO #; Value: 0.3; Range: 0.0-0.8; Units: K/mm3; Status: F Test: EOS #; Value: 0.1; Range: 0.0-0.50; Units: K/mm3; Status: F Test: BASO #; Value: 0.0; Range: 0.0-0.2; Units: K/mm3; Status: F Test: LARGE UNSTAINED CELL #; Value: 0.1; Range: 0.0-0.4; Units: K/mm3; Status: F Lab Order: Lipase; SPEC'M 05/29/16 17:23 Test: LIPASE; Value: 101; Range: 73-393; Units: U/L; Status: F Lab Order: Liver Profile; SPEC'M 05/29/16 17:23 Test: AST/SGOT; Value: 14; Range: 15-37; Abnormal: Below low normal; Units: U/L; Status: F Test: ALT/SGPT; Value: 21; Range: 12-78; Units: U/L; Status: F Test: ALKALINE PHOSPHATASE; Value: 68; Range: 45-117; Units: U/L; Status: F Test: BILIRUBIN,TOTAL; Value: 0.4; Range: 0.2-1.0; Units: MG/DL; Status: F Test: BILIRUBIN,DIRECT; Value: 0.1; Range: 0.0-0.2; Units: MG/DL; Status: F Test: TOTAL PROTEIN; Value: 7.2; Range: 6.4-8.2; Units: GM/DL; Status: F Test: ALBUMIN; Value: 3.8; Range: 3.2-5.2; Units: GM/DL; Status: F Test: ALBUMIN/GLOBULIN RATIO; Value: 1.12; Range: 1.00-1.93; Status: F Lab Order: Urinalysis; SPEC'M 05/29/16 16:41 Test: APPEARANCE, URINE; Value: CLEAR; Range: CLEAR; Status: F Test: COLOR, URINE; Value: STRAW; Range: YELLOW; Status: F Test: PH,URINE; Value: 7.0; Range: 5.0-9.0; Units: UNITS; Status: F Test: SPECIFIC GRAVITY URINE AUTO; Value: 1.011; Range: 1.002-1.035; Status: F Test: PROTEIN, URINE AUTO; Value: NEGATIVE; Range: NEGATIVE; Units: mg/dL; Status: F Test: GLUCOSE, URINE (UA) AUTO; Value: NEGATIVE; Range: NEGATIVE; Units: mg/dL; Status: F Test: KETONE, URINE AUTO; Value: NEGATIVE; Range: NEGATIVE; Units: mg/dL; Status: F Test: UROBILINOGEN, URINE AUTO; Value: 0.2; Range: 0.0-2.0; Units: mg/dL; Status: F Test: BILIRUBIN, URINE AUTO; Value: NEGATIVE; Range: NEGATIVE; Status: F Test: NITRITE, URINE AUTO; Value: NEGATIVE; Range: NEGATIVE; Status: F Test: LEUKOCYTE ESTERASE, URINE AUTO; Value: NEGATIVE; Range: NEGATIVE; Status: F Test: BLOOD, URINE BLOOD; Value: 1+; Range: NEGATIVE; Abnormal: Above high normal; Status: F Test: WBC, URINE AUTO; Value: 1; Range: 0-3; Units: /HPF; Status: F Test: RBC, URINE AUTO; Value: 1; Range: 0-3; Units: /HPF; Status: F Test: BACTERIA, URINE AUTO; Value: NEGATIVE; Range: NEGATIVE; Status: F Test: SQUAMOUS EPITHELIAL CELL UR AU; Value: 1; Range: 0-6; Units: /HPF; Status: F Test: HYALINE CAST, URINE AUTO; Value: 0; Range: 0-1; Units: /LPF; Status: F Lab Order: Urine Culture; SPEC'M 05/29/16 16:41 Test: URINE CULTURE; Value: URINE CULTURE RESULT NO GROWTH; Status: F Radiology Order: CT ABD & PELVIS: No Contrast Test: CT ABD & PELVIS: No Contrast REASON FOR EXAMINATION: Right sided abd pain, diffuse; CT ABDOMEN AND PELVIS WITHOUT CONTRAST:; ; TECHNIQUE: Axial noncontrast images through the abdomen followed by; contrast-enhanced images through the abdomen and pelvis using 100 mL Isovue 370; intravenous contrast material, with coronal and sagittal reformations.; ; Visualized lung bases are clear. The liver, spleen, adrenals, pancreas, kidneys; and gallbladder are unremarkable. There is no evidence of hydroureteronephrosis.; There is no evidence of renal, ureteral, or bladder calculus. There is no; abdominal aortic aneurysm. There is no free air. There is no bowel wall; thickening. There is no evidence of appendicitis. There is no gross pelvic mass.; There is mild free fluid in the pelvis. Urinary bladder is very mildly distended; and grossly unremarkable. Visualized osseous structures appear unremarkable.; ; IMPRESSION:; ; Mild free fluid in the pelvis, otherwise negative noncontrast CT abdomen and; pelvis. No evidence of appendicitis. No evidence of renal, ureteral or bladder; calculus and no hydroureteronephrosis.; ; ; Signed by; Javi Pandya MD 05/29/2016 07:17 P; Radiology Order: Gallbladder US Test: Gallbladder US REASON FOR EXAMINATION: Biliary Colic; RIGHT UPPER QUADRANT ULTRASOUND:; ; Real-time sonographic evaluation of the right upper extremity is performed. The; gallbladder demonstrates no evidence of intraluminal sludge or calculi, wall; thickening or pericholecystic fluid. There is no intrahepatic or extrahepatic; biliary dilatation, common bile duct measuring 2 mm in diameter. Liver and; pancreas demonstrate no gross mass, pancreas is not optimally seen due to; overlying bowel gas. Right kidney demonstrates no hydronephrosis or; nephrolithiasis with normal size at 9.4 cm in length.; ; IMPRESSION:; ; Negative right upper quadrant ultrasound.; ; ; Signed by; Javi Pandya MD 05/29/2016 07:17 P; Outcome: 17:30 CT Study completed. Ultrasound Study completed. kc3 18:19 Discharge ordered by Provider. ef1 18:30 Discharge Assessment: Patient awake, alert and oriented x 3. No cognitive and/or kc3 functional deficits noted. Patient verbalized understanding of disposition instructions. patient administered narcotics - no. 18:31 The following High Risk Discharge criteria are identified: None. Discharged to home. kc3 Condition: stable. Discharge instructions given to patient, Instructed on discharge instructions, follow up and referral plans. medication usage, Demonstrated understanding of instructions, medications, Pt was receptive of discharge instructions/ teaching. Prescriptions given X 3. Property :Personal belongings accompany Pt. 18:31 Patient left the ED. kc3 Signatures: Dispatcher [employer] EDMS WendieDennise duke, Reg Reg gb Owen Chavez, SECOND CHEF SECOND CHEF dd6 Daniela Lopez, YAMILETH CARSON ef1 Valeria Chavez,RN RN dsf Zainab, Tania Holguin RN RN Chantal Conroy RN RN ead Schmitt, Rebecca, SECOND CHEF SECOND CHEF rs6 Simona Khan RN RN kc3 Grace Resendiz dm19 Corrections: (The following items were deleted from the chart) 18:31 18:30 Discharge Assessment: Patient awake, alert and oriented x 3. No cognitive and/or kc3 functional deficits noted. Patient verbalized understanding of disposition instructions. patient administered narcotics - kc3 Chart Complete MTDD
--- NOTE | 2016-05-31 19:33 | EDDOCDS ---
Physician Documentation [facility] Name: Piedad Smith Age: 25 yrs Sex: Female : 1990 Arrival Date: 05/29/2016 Time: 15:54 Bed I6 / 28 Private MD: Marielle Black Disposition: 05/29/16 18:19 Discharged to Home/Self Care. Impression: Other abdominal pain - Right-sided. - Condition is Stable. - Discharge Instructions: Abdominal Pain, Adult, [id number]. - Prescriptions for Bentyl 20 mg Oral Tablet - take 1 tablet by ORAL route every 6 hours As needed; 20 tablet. Naprosyn 500 mg Oral Tablet - take 1 tablet by ORAL route 2 times per day take with food; 30 tablet. ZOFRAN ODT 4 mg - dissolve 1 tablet by ORAL route 4 times per day As needed do not chew, do not swallow whole; 10 tablet. - Medication Reconciliation, Local Pharmacy Hours form. - Follow up: Marielle Black; When: 1 - 2 days; Reason: Recheck today's complaints, Continuance of care. Follow up: Emergency Department; Reason: Worsening of conditions. Follow up: Javi Quintanilla; When: Call to arrange an appointment; Reason: Further diagnostic work-up, Recheck today's complaints, Continuance of care. - Problem is new. - Symptoms have improved. Historical: - Allergies: Tofranil (Hives); Ditropan (Hives); Ceclor (Hives); Amoxicillin (Hives); - Home Meds: 1. venlafaxine 75 mg oral tab 1 tab once daily (Last dose: 05/27/2016) - PMHx: Colitis; - PSHx: none; - Social history: Smoking status: Patient uses tobacco products, current every day smoker. No barriers to communication noted, The patient speaks fluent Latvian, Speaks appropriately for age. - Family history: Not pertinent. - : The pt / caregiver states he / she is not on anticoagulants. Home medication list is obtained from the patient. - Exposure Risk Screening:: None identified. 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 11 in. (149.86 cm) (R); 18:03 BP 107 / 73; Pulse 77; Resp 18; Temp 98.3(O); Pulse Ox 99% on R/A; Pain 0/10; kc3 15:55 Body Mass Index 29.29 (65.77 kg, 149.86 cm) dd6 MDM: 16:34 NS 0.9% 1000 ml IV at bolus once ordered. ef1 16:34 Ondansetron 4 mg IVP once ordered. ef1 16:34 ketorolac 30 mg IVP once ordered. ef1 16:34 IV Saline Lock ordered. ef1 16:34 Undress patient appropriately for examination ordered. ef1 16:34 UCG by Nursing ordered. ef1 16:35 Amylase Ordered. EDMS 16:35 Basic Metabolic Profile Ordered. EDMS 16:35 CBC with Diff Ordered. EDMS 16:35 Lipase Ordered. EDMS 16:35 Liver Profile Ordered. EDMS 16:35 Urinalysis Ordered. EDMS 16:35 Urine Culture Ordered. EDMS 16:35 Gallbladder US Ordered. EDMS 16:36 CT ABD & PELVIS: No Contrast Ordered. EDMS 16:36 NOTHING BY MOUTH+DIET ordered. EDMS 17:03 [facility] [place] Payment Agreement was scanned into [employer] and attached to record. dm19 17:03 Financial registration complete. dm19 17:56 CBC with Diff Reviewed. ef1 17:56 Urinalysis Reviewed. ef1 18:15 Basic Metabolic Profile Reviewed. ef1 18:15 Liver Profile Reviewed. ef1 18:15 Amylase Reviewed. ef1 18:15 Lipase Reviewed. ef1 05/31 08:43 T-Sheet-- Draft Copy was scanned into [employer] and attached to record. gb Point of Care Testing: Urine : 05/29 16:47 hCG Reading: Negative; Control Reading: Positive; rs6 Ranges: Administered Medications: 17:15 Drug: NS 0.9% 1000 ml [sodium chloride 0.9 % injection solution] Route: IV; Rate: dsf bolus; Site: right antecubital; 18:29 Follow up: IV Status: Infusion discontinued kc3 17:16 Drug: Ondansetron 4 mg [ondansetron HCl 2 mg/mL intravenous solution (2 mL)] Route: dsf IVP; Site: right antecubital; 17:16 Drug: ketorolac 30 mg [ketorolac 30 mg/mL (1 mL) injection solution (1 mL)] Route: IVP; dsf Site: right antecubital; Signatures: Dispatcher [employer] EDMS Dennise Minaya, Reg Reg gb John, Danilea, YAMILETH PAMike ef1 Chantal Gonsalez RN RN Simona Vanegas RN RN kc3 Grace Resendiz dm19 Valeria Chavez RN dsf The chart was reviewed and I authenticate all verbal orders and agree with the evaluation and treatment provided.Attachments: 17:03 [facility] Payment Agreement dm19 05/31 08:43 T-Sheet-- Draft Copy gb Chart Complete MTDD
--- NOTE | 2016-06-04 09:18 | EDDOCDS ---
Nurse's Notes [facility] [facility] Name: Piedad Smith Age: 25 yrs Sex: Female : 1990 Arrival Date: 05/29/2016 Time: 15:54 Bed I6 Private MD: Marielle Black Diagnosis: Other abdominal [id number] Presentation: 05/29 15:56 Presenting complaint: Patient states: pt c/o right sided abdominal pain, onset six ead months ago, worsening today. reports nausea, denies vomiting. Risk factors: the patient reports no vaginal bleeding. Adult Sepsis Screening: The patient does not have new or worsening altered mentation. Patient's respiratory rate is less than 22. Systolic blood pressure is greater than 100. Patient has a qSOFA score of 0- Negative Sepsis Screen. Suicide/Homicide risk assessment- the patient denies having any suicidal and/or homicidal ideations and does not present with any other emotional, behavioral or mental health complaints. 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 Transition of care: patient was not received from another setting of care. 15:56 Acuity: SAM Level 3 ead 15:56 Method Of Arrival: Walkin/Carried/Asstd ead Triage Assessment: 15:57 General: Appears in no apparent distress, Behavior is appropriate for age, cooperative. ead Pain: Location: abdomen Pain currently is 5 out of 10 on a pain scale. HIV screening NA for this visit Offered previously. Neurological: No deficits noted. Respiratory: Airway is patent Respiratory effort is even, unlabored. GI: Reports lower abdominal pain, nausea. : Denies burning with urination, pain with urination vaginal bleeding. Derm: Skin is pink, warm & dry. 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 venlafaxine 75 mg oral tab 1 tab once daily (Last dose: 05/27/2016) - PMHx: Colitis; - PSHx: none; - Social history: Smoking status: Patient uses tobacco products, current every day smoker. No barriers to communication noted, The patient speaks fluent Mosotho, Speaks appropriately for age. - Family history: Not pertinent. - : The pt / caregiver states he / she is not on anticoagulants. Home medication list is obtained from the patient. - Exposure Risk Screening:: None identified. Screenin:29 Screening information is obtained from the patient. Fall risk: No risks identified. kc3 Assistance ADL's: requires no assistance with activities of daily living. Abuse/DV Screen: The patient / caregiver reports he/she is: not in a situation that causes fear, pain or injury. Nutritional screening: No deficits noted. Advance Directives: Currently, there is no health care proxy. home support is adequate. Assessment: 17:28 General: Appears in no apparent distress, comfortable, Behavior is appropriate for age, kc3 cooperative. Pain: Location: right upper quadrant Pain currently is 4 out of 10 on a pain scale. Neurological: Level of Consciousness is awake, alert, obeys commands, Oriented to person, place, time. Respiratory: Respiratory effort is even, unlabored. GI: Abdomen is flat, Bowel sounds present X 4 quads. Abd is soft and non tender X 4 quads. Reports nausea, vomiting. Derm: Skin is pink, warm & dry. 17:56 Adult Sepsis Screening: The patient does not have new or worsening altered mentation. kc3 Patient's respiratory rate is less than 22. Systolic blood pressure is greater than 100. Patient has a qSOFA score of 0- Negative Sepsis Screen. 18:30 General: Appears in no apparent distress, comfortable, Behavior is appropriate for age, kc3 cooperative. Pain: Denies pain. Neurological: Level of Consciousness is awake, alert, obeys commands, Oriented to person, place, time. Respiratory: Respiratory effort is even, unlabored. Derm: Skin is pink, warm & dry. Vital Signs: 15:55 BP 154 / 82; Pulse 82; Resp 18 S; Temp 97.7(O); Pulse Ox 100% on R/A; Weight 65.77 kg dd6 (R); Height 4 ft. 11 in. (149.86 cm) (R); 18:03 BP 107 / 73; Pulse 77; Resp 18; Temp 98.3(O); Pulse Ox 99% on R/A; Pain 0/10; kc3 15:55 Body Mass Index 29.29 (65.77 kg, 149.86 cm) dd6 Vitals: 15:55 Log In Time: May 29, 2016 at 15:53. dd6 ED Course: 15:55 Patient visited by Owen Chavez PCA. dd6 15:55 Marielle Black is Private Physician. dd6 15:55 Patient moved to Waiting dd6 15:56 Patient moved to Pre RCE dd6 15:57 Triage Initiated ead 15:59 Patient moved to Triage 1 ead 16:21 Daniela Lopez PA-C is PHCP. ef1 16:21 Antonette Cruz MD is Attending Physician. ef1 16:21 Patient visited by Daniela Lopez PA-C. ef1 16:42 Urinalysis Sent. rs6 16:42 Urine Culture Sent. rs6 16:43 Patient moved to 24 ttb 16:44 Patient moved to I6 / 28 dsf 16:46 Patient moved to Ultrasound hgl 16:47 Patient visited by Dilcia Pat PCA. rs6 16:58 Patient moved to I6 / 28 hgl 17:03 [facility] Payment Agreement was scanned into [employer] and attached to record. dm19 17:16 Inserted saline lock: 20 gauge in right antecubital area The patient tolerated the dsf procedure well. 17:28 Patient visited by Simona Khan RN. kc3 17:28 Amylase Sent. kc3 17:28 Basic Metabolic Profile Sent. kc3 17:28 CBC with Diff Sent. kc3 17:28 Lipase Sent. kc3 17:28 Liver Profile Sent. kc3 17:30 Patient visited by Simona Khan RN. kc3 17:30 The patient / caregiver is instructed regarding the plan of care and ED course. kc3 17:55 Patient visited by Daniela Lopez PA-C. ef1 18:04 Patient visited by Simona hKan RN. kc3 18:19 Marielle Black is Referral Physician. ef1 18:19 Javi Quintanilla DO is Referral Physician. ef1 18:30 Discontinued IV lock intact, bleeding controlled, pressure dressing applied, No kc3 redness/swelling at site. No procedures done that require assistance. 19:14 Gallbladder US Returned. EDMS 19:14 CT ABD & PELVIS: No Contrast Returned. EDMS 05/31 08:43 T-Sheet-- Draft Copy was scanned into [employer] and attached to record. gb Administered Medications: 05/29 17:15 Drug: NS 0.9% 1000 ml [sodium chloride 0.9 % injection solution] Route: IV; Rate: dsf bolus; Site: right antecubital; 18:29 Follow up: IV Status: Infusion discontinued kc3 17:16 Drug: Ondansetron 4 mg [ondansetron HCl 2 mg/mL intravenous solution (2 mL)] Route: dsf IVP; Site: right antecubital; 17:16 Drug: ketorolac 30 mg [ketorolac 30 mg/mL (1 mL) injection solution (1 mL)] Route: IVP; dsf Site: right antecubital; Point of Care Testing: Urine : 16:47 hCG Reading: Negative; Control Reading: Positive; rs6 Ranges: Order Results: Lab Order: Amylase; SPEC'M 05/29/16 17:23 Test: AMYLASE; Value: 41; Range: 25-115; Units: U/L; Status: F Lab Order: Basic Metabolic Profile; SPEC'M 05/29/16 17:23 Test: GLUCOSE, FASTING; Value: 103; Range: 70-105; Units: MG/DL; Status: F Test: BLOOD UREA NITROGEN; Value: 10; Range: 7-18; Units: MG/DL; Status: F Test: CREATININE FOR GFR; Value: 0.85; Range: 0.55-1.02; Units: MG/DL; Status: F Test: GLOMERULAR FILTRATION RATE; Value: > 60.0; Range: >60; Status: F Test: SODIUM LEVEL; Value: 143; Range: 136-145; Units: MEQ/L; Status: F Test: POTASSIUM SERUM; Value: 4.1; Range: 3.5-5.1; Units: MEQ/L; Status: F Test: CHLORIDE LEVEL; Value: 110; Range: 98-107; Abnormal: Above high normal; Units: MEQ/L; Status: F Test: CARBON DIOXIDE LEVEL; Value: 24; Range: 21-32; Units: MEQ/L; Status: F Test: ANION GAP; Value: 9; Range: 8-16; Units: MEQ/L; Status: F Test: CALCIUM LEVEL; Value: 8.9; Range: 8.5-10.1; Units: MG/DL; Status: F Test Note: ; Units are mL/min/1.73 m2 Chronic Kidney Disease Staging per NKF: Stage I & II GFR >=60 Normal to Mildly Decreased Stage III GFR 30-59 Moderately Decreased Stage IV GFR 15-29 Severely Decreased Stage V GFR <15 Very Little GFR Left ESRD GFR <15 on CONSTRUCTION TECHNOLOGY INSTRUCTOR Lab Order: CBC with Diff; TITA'Jose 05/29/16 17:23 Test: WHITE BLOOD COUNT; Value: 5.3; Range: 4.0-10.0; Units: K/mm3; Status: F Test: RED BLOOD COUNT; Value: 4.39; Range: 4.00-5.40; Units: M/mm3; Status: F Test: HEMOGLOBIN; Value: 14.1; Range: 12.0-16.0; Units: g/dl; Status: F Test: HEMATOCRIT; Value: 39.5; Range: 36.0-47.0; Units: %; Status: F Test: MEAN CORPUSCULAR VOLUME; Value: 90.1; Range: 80.0-96.0; Units: fl; Status: F Test: MEAN CORPUSCULAR HEMOGLOBIN; Value: 32.2; Range: 27.0-33.0; Units: pg; Status: F Test: MEAN CORPUSCULAR HGB CONC; Value: 35.8; Range: 32.0-36.5; Units: g/dl; Status: F Test: RED CELL DISTRIBUTION WIDTH; Value: 12.3; Range: 11.5-14.5; Units: %; Status: F Test: PLATELET COUNT, AUTOMATED; Value: 191; Range: 150-450; Units: k/mm3; Status: F Test: NEUTROPHILS %; Value: 65.6; Range: 36.0-66.0; Units: %; Status: F Test: LYMPH %; Value: 26.0; Range: 24.0-44.0; Units: %; Status: F Test: MONO %; Value: 4.7; Range: 0.0-5.0; Units: %; Status: F Test: EOS %; Value: 2.0; Range: 0.0-3.0; Units: %; Status: F Test: BASO %; Value: 0.2; Range: 0.0-1.0; Units: %; Status: F Test: LARGE UNSTAINED CELL %; Value: 1.5; Range: 0.0-4.0; Units: %; Status: F Test: NEUTROPHILS #; Value: 3.5; Range: 1.8-7.7; Units: K/mm3; Status: F Test: LYMPH #; Value: 1.4; Range: 1.5-6.5; Abnormal: Below low normal; Units: K/mm3; Status: F Test: MONO #; Value: 0.3; Range: 0.0-0.8; Units: K/mm3; Status: F Test: EOS #; Value: 0.1; Range: 0.0-0.50; Units: K/mm3; Status: F Test: BASO #; Value: 0.0; Range: 0.0-0.2; Units: K/mm3; Status: F Test: LARGE UNSTAINED CELL #; Value: 0.1; Range: 0.0-0.4; Units: K/mm3; Status: F Lab Order: Lipase; SPEC'M 05/29/16 17:23 Test: LIPASE; Value: 101; Range: 73-393; Units: U/L; Status: F Lab Order: Liver Profile; SPEC'M 05/29/16 17:23 Test: AST/SGOT; Value: 14; Range: 15-37; Abnormal: Below low normal; Units: U/L; Status: F Test: ALT/SGPT; Value: 21; Range: 12-78; Units: U/L; Status: F Test: ALKALINE PHOSPHATASE; Value: 68; Range: 45-117; Units: U/L; Status: F Test: BILIRUBIN,TOTAL; Value: 0.4; Range: 0.2-1.0; Units: MG/DL; Status: F Test: BILIRUBIN,DIRECT; Value: 0.1; Range: 0.0-0.2; Units: MG/DL; Status: F Test: TOTAL PROTEIN; Value: 7.2; Range: 6.4-8.2; Units: GM/DL; Status: F Test: ALBUMIN; Value: 3.8; Range: 3.2-5.2; Units: GM/DL; Status: F Test: ALBUMIN/GLOBULIN RATIO; Value: 1.12; Range: 1.00-1.93; Status: F Lab Order: Urinalysis; SPEC'M 05/29/16 16:41 Test: APPEARANCE, URINE; Value: CLEAR; Range: CLEAR; Status: F Test: COLOR, URINE; Value: STRAW; Range: YELLOW; Status: F Test: PH,URINE; Value: 7.0; Range: 5.0-9.0; Units: UNITS; Status: F Test: SPECIFIC GRAVITY URINE AUTO; Value: 1.011; Range: 1.002-1.035; Status: F Test: PROTEIN, URINE AUTO; Value: NEGATIVE; Range: NEGATIVE; Units: mg/dL; Status: F Test: GLUCOSE, URINE (UA) AUTO; Value: NEGATIVE; Range: NEGATIVE; Units: mg/dL; Status: F Test: KETONE, URINE AUTO; Value: NEGATIVE; Range: NEGATIVE; Units: mg/dL; Status: F Test: UROBILINOGEN, URINE AUTO; Value: 0.2; Range: 0.0-2.0; Units: mg/dL; Status: F Test: BILIRUBIN, URINE AUTO; Value: NEGATIVE; Range: NEGATIVE; Status: F Test: NITRITE, URINE AUTO; Value: NEGATIVE; Range: NEGATIVE; Status: F Test: LEUKOCYTE ESTERASE, URINE AUTO; Value: NEGATIVE; Range: NEGATIVE; Status: F Test: BLOOD, URINE BLOOD; Value: 1+; Range: NEGATIVE; Abnormal: Above high normal; Status: F Test: WBC, URINE AUTO; Value: 1; Range: 0-3; Units: /HPF; Status: F Test: RBC, URINE AUTO; Value: 1; Range: 0-3; Units: /HPF; Status: F Test: BACTERIA, URINE AUTO; Value: NEGATIVE; Range: NEGATIVE; Status: F Test: SQUAMOUS EPITHELIAL CELL UR AU; Value: 1; Range: 0-6; Units: /HPF; Status: F Test: HYALINE CAST, URINE AUTO; Value: 0; Range: 0-1; Units: /LPF; Status: F Lab Order: Urine Culture; SPEC'M 05/29/16 16:41 Test: URINE CULTURE; Value: URINE CULTURE RESULT NO GROWTH; Status: F Radiology Order: CT ABD & PELVIS: No Contrast Test: CT ABD & PELVIS: No Contrast REASON FOR EXAMINATION: Right sided abd pain, diffuse; CT ABDOMEN AND PELVIS WITHOUT CONTRAST:; ; TECHNIQUE: Axial noncontrast images through the abdomen followed by; contrast-enhanced images through the abdomen and pelvis using 100 mL Isovue 370; intravenous contrast material, with coronal and sagittal reformations.; ; Visualized lung bases are clear. The liver, spleen, adrenals, pancreas, kidneys; and gallbladder are unremarkable. There is no evidence of hydroureteronephrosis.; There is no evidence of renal, ureteral, or bladder calculus. There is no; abdominal aortic aneurysm. There is no free air. There is no bowel wall; thickening. There is no evidence of appendicitis. There is no gross pelvic mass.; There is mild free fluid in the pelvis. Urinary bladder is very mildly distended; and grossly unremarkable. Visualized osseous structures appear unremarkable.; ; IMPRESSION:; ; Mild free fluid in the pelvis, otherwise negative noncontrast CT abdomen and; pelvis. No evidence of appendicitis. No evidence of renal, ureteral or bladder; calculus and no hydroureteronephrosis.; ; ; Signed by; Javi Pandya MD 05/29/2016 07:17 P; Radiology Order: Gallbladder US Test: Gallbladder US REASON FOR EXAMINATION: Biliary Colic; RIGHT UPPER QUADRANT ULTRASOUND:; ; Real-time sonographic evaluation of the right upper extremity is performed. The; gallbladder demonstrates no evidence of intraluminal sludge or calculi, wall; thickening or pericholecystic fluid. There is no intrahepatic or extrahepatic; biliary dilatation, common bile duct measuring 2 mm in diameter. Liver and; pancreas demonstrate no gross mass, pancreas is not optimally seen due to; overlying bowel gas. Right kidney demonstrates no hydronephrosis or; nephrolithiasis with normal size at 9.4 cm in length.; ; IMPRESSION:; ; Negative right upper quadrant ultrasound.; ; ; Signed by; Javi Pandya MD 05/29/2016 07:17 P; Outcome: 17:30 CT Study completed. Ultrasound Study completed. kc3 18:19 Discharge ordered by Provider. ef1 18:30 Discharge Assessment: Patient awake, alert and oriented x 3. No cognitive and/or kc3 functional deficits noted. Patient verbalized understanding of disposition instructions. patient administered narcotics - no. 18:31 The following High Risk Discharge criteria are identified: None. Discharged to home. kc3 Condition: stable. Discharge instructions given to patient, Instructed on discharge instructions, follow up and referral plans. medication usage, Demonstrated understanding of instructions, medications, Pt was receptive of discharge instructions/ teaching. Prescriptions given X 3. Property :Personal belongings accompany Pt. 18:31 Patient left the ED. kc3 Signatures: Dispatcher [employer] EDMS WendieDennise duke, Reg Reg gb Owen Chavez, REGISTERED MASSAGE THERAPIST REGISTERED MASSAGE THERAPIST dd6 Daniela Lopez, YAMILETH CARSON ef1 Valeria Chavez,RN RN dsf Zainab, Tania Holguin RN RN Chantal Conroy RN RN ead Schmitt, Rebecca, REGISTERED MASSAGE THERAPIST REGISTERED MASSAGE THERAPIST rs6 Simona Khan RN RN kc3 Grace Resendiz dm19 Corrections: (The following items were deleted from the chart) 18:31 18:30 Discharge Assessment: Patient awake, alert and oriented x 3. No cognitive and/or kc3 functional deficits noted. Patient verbalized understanding of disposition instructions. patient administered narcotics - kc3 Chart Complete MTDD
--- NOTE | 2016-06-04 09:18 | EDDOCDS ---
Physician Documentation [facility] Name: Piedad Smith Age: 25 yrs Sex: Female : 1990 Arrival Date: 05/29/2016 Time: 15:54 Bed I6 / 28 Private MD: Marielle Black Disposition: 05/29/16 18:19 Discharged to Home/Self Care. Impression: Other abdominal pain - Right-sided. - Condition is Stable. - Discharge Instructions: Abdominal Pain, Adult, [id number]. - Prescriptions for Bentyl 20 mg Oral Tablet - take 1 tablet by ORAL route every 6 hours As needed; 20 tablet. Naprosyn 500 mg Oral Tablet - take 1 tablet by ORAL route 2 times per day take with food; 30 tablet. ZOFRAN ODT 4 mg - dissolve 1 tablet by ORAL route 4 times per day As needed do not chew, do not swallow whole; 10 tablet. - Medication Reconciliation, Local Pharmacy Hours form. - Follow up: Marielle Black; When: 1 - 2 days; Reason: Recheck today's complaints, Continuance of care. Follow up: Emergency Department; Reason: Worsening of conditions. Follow up: Javi Quintanilla; When: Call to arrange an appointment; Reason: Further diagnostic work-up, Recheck today's complaints, Continuance of care. - Problem is new. - Symptoms have improved. Historical: - Allergies: Tofranil (Hives); Ditropan (Hives); Ceclor (Hives); Amoxicillin (Hives); - Home Meds: 1. venlafaxine 75 mg oral tab 1 tab once daily (Last dose: 05/27/2016) - PMHx: Colitis; - PSHx: none; - Social history: Smoking status: Patient uses tobacco products, current every day smoker. No barriers to communication noted, The patient speaks fluent Thai, Speaks appropriately for age. - Family history: Not pertinent. - : The pt / caregiver states he / she is not on anticoagulants. Home medication list is obtained from the patient. - Exposure Risk Screening:: None identified. 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 11 in. (149.86 cm) (R); 18:03 BP 107 / 73; Pulse 77; Resp 18; Temp 98.3(O); Pulse Ox 99% on R/A; Pain 0/10; kc3 15:55 Body Mass Index 29.29 (65.77 kg, 149.86 cm) dd6 MDM: 16:34 NS 0.9% 1000 ml IV at bolus once ordered. ef1 16:34 Ondansetron 4 mg IVP once ordered. ef1 16:34 ketorolac 30 mg IVP once ordered. ef1 16:34 IV Saline Lock ordered. ef1 16:34 Undress patient appropriately for examination ordered. ef1 16:34 UCG by Nursing ordered. ef1 16:35 Amylase Ordered. EDMS 16:35 Basic Metabolic Profile Ordered. EDMS 16:35 CBC with Diff Ordered. EDMS 16:35 Lipase Ordered. EDMS 16:35 Liver Profile Ordered. EDMS 16:35 Urinalysis Ordered. EDMS 16:35 Urine Culture Ordered. EDMS 16:35 Gallbladder US Ordered. EDMS 16:36 CT ABD & PELVIS: No Contrast Ordered. EDMS 16:36 NOTHING BY MOUTH+DIET ordered. EDMS 17:03 [facility] [place] [facility] Payment Agreement was scanned into [employer] and attached to record. dm19 17:03 Financial registration complete. dm19 17:56 CBC with Diff Reviewed. ef1 17:56 Urinalysis Reviewed. ef1 18:15 Basic Metabolic Profile Reviewed. ef1 18:15 Liver Profile Reviewed. ef1 18:15 Amylase Reviewed. ef1 18:15 Lipase Reviewed. ef1 05/31 08:43 T-Sheet-- Draft Copy was scanned into [employer] and attached to record. gb Point of Care Testing: Urine : 05/29 16:47 hCG Reading: Negative; Control Reading: Positive; rs6 Ranges: Administered Medications: 17:15 Drug: NS 0.9% 1000 ml [sodium chloride 0.9 % injection solution] Route: IV; Rate: dsf bolus; Site: right antecubital; 18:29 Follow up: IV Status: Infusion discontinued kc3 17:16 Drug: Ondansetron 4 mg [ondansetron HCl 2 mg/mL intravenous solution (2 mL)] Route: dsf IVP; Site: right antecubital; 17:16 Drug: ketorolac 30 mg [ketorolac 30 mg/mL (1 mL) injection solution (1 mL)] Route: IVP; dsf Site: right antecubital; Signatures: Dispatcher [employer] EDMS Dennise Minaya, Reg Reg gb John, Daniela, YAMILETH PAMike ef1 Chantal Gonsalez RN RN Simona Vanegas RN RN kc3 Grace Resendiz dm19 Valeria Chavez RN dsf The chart was reviewed and I authenticate all verbal orders and agree with the evaluation and treatment provided.Attachments: 17:03 [facility] Payment Agreement dm19 05/31 08:43 T-Sheet-- Draft Copy gb Chart Complete MTDD
--- NOTE | 2016-06-04 09:18 | EDDOCDS ---
Physician Documentation [facility] Name: Piedad Smith Age: 25 yrs Sex: Female : 1990 Arrival Date: 05/29/2016 Time: 15:54 Bed I6 / 28 Private MD: Marielle Black Disposition: 05/29/16 18:19 Discharged to Home/Self Care. Impression: Other abdominal pain - Right-sided. - Condition is Stable. - Discharge Instructions: Abdominal Pain, Adult, [id number]. - Prescriptions for Bentyl 20 mg Oral Tablet - take 1 tablet by ORAL route every 6 hours As needed; 20 tablet. Naprosyn 500 mg Oral Tablet - take 1 tablet by ORAL route 2 times per day take with food; 30 tablet. ZOFRAN ODT 4 mg - dissolve 1 tablet by ORAL route 4 times per day As needed do not chew, do not swallow whole; 10 tablet. - Medication Reconciliation, Local Pharmacy Hours form. - Follow up: Marielle Black; When: 1 - 2 days; Reason: Recheck today's complaints, Continuance of care. Follow up: Emergency Department; Reason: Worsening of conditions. Follow up: Javi Quintanilla; When: Call to arrange an appointment; Reason: Further diagnostic work-up, Recheck today's complaints, Continuance of care. - Problem is new. - Symptoms have improved. Historical: - Allergies: Tofranil (Hives); Ditropan (Hives); Ceclor (Hives); Amoxicillin (Hives); - Home Meds: 1. venlafaxine 75 mg oral tab 1 tab once daily (Last dose: 05/27/2016) - PMHx: Colitis; - PSHx: none; - Social history: Smoking status: Patient uses tobacco products, current every day smoker. No barriers to communication noted, The patient speaks fluent Indonesian, Speaks appropriately for age. - Family history: Not pertinent. - : The pt / caregiver states he / she is not on anticoagulants. Home medication list is obtained from the patient. - Exposure Risk Screening:: None identified. 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 11 in. (149.86 cm) (R); 18:03 BP 107 / 73; Pulse 77; Resp 18; Temp 98.3(O); Pulse Ox 99% on R/A; Pain 0/10; kc3 15:55 Body Mass Index 29.29 (65.77 kg, 149.86 cm) dd6 MDM: 16:34 NS 0.9% 1000 ml IV at bolus once ordered. ef1 16:34 Ondansetron 4 mg IVP once ordered. ef1 16:34 ketorolac 30 mg IVP once ordered. ef1 16:34 IV Saline Lock ordered. ef1 16:34 Undress patient appropriately for examination ordered. ef1 16:34 UCG by Nursing ordered. ef1 16:35 Amylase Ordered. EDMS 16:35 Basic Metabolic Profile Ordered. EDMS 16:35 CBC with Diff Ordered. EDMS 16:35 Lipase Ordered. EDMS 16:35 Liver Profile Ordered. EDMS 16:35 Urinalysis Ordered. EDMS 16:35 Urine Culture Ordered. EDMS 16:35 Gallbladder US Ordered. EDMS 16:36 CT ABD & PELVIS: No Contrast Ordered. EDMS 16:36 NOTHING BY MOUTH+DIET ordered. EDMS 17:03 [facility] [place] Payment Agreement was scanned into [employer] and attached to record. dm19 17:03 Financial registration complete. dm19 17:56 CBC with Diff Reviewed. ef1 17:56 Urinalysis Reviewed. ef1 18:15 Basic Metabolic Profile Reviewed. ef1 18:15 Liver Profile Reviewed. ef1 18:15 Amylase Reviewed. ef1 18:15 Lipase Reviewed. ef1 05/31 08:43 T-Sheet-- Draft Copy was scanned into [employer] and attached to record. gb Point of Care Testing: Urine : 05/29 16:47 hCG Reading: Negative; Control Reading: Positive; rs6 Ranges: Administered Medications: 17:15 Drug: NS 0.9% 1000 ml [sodium chloride 0.9 % injection solution] Route: IV; Rate: dsf bolus; Site: right antecubital; 18:29 Follow up: IV Status: Infusion discontinued kc3 17:16 Drug: Ondansetron 4 mg [ondansetron HCl 2 mg/mL intravenous solution (2 mL)] Route: dsf IVP; Site: right antecubital; 17:16 Drug: ketorolac 30 mg [ketorolac 30 mg/mL (1 mL) injection solution (1 mL)] Route: IVP; dsf Site: right antecubital; Signatures: Dispatcher [employer] EDMS Dennise Minaya, Reg Reg gb John, Daniela, YAMILETH PAMike ef1 Chantal Gonsalez RN RN Simona Vanegas RN RN kc3 Grace Resendiz dm19 Valeria Chavez RN dsf The chart was reviewed and I authenticate all verbal orders and agree with the evaluation and treatment provided.Attachments: 17:03 [facility] Payment Agreement dm19 05/31 08:43 T-Sheet-- Draft Copy gb Chart Complete MTDD
== END 2016-05-29 18:31 | disposition home or self-care (01) ==
LOC: M ED 15:54
DX: R10.31 Right lower quadrant pain (principal); K52.9 Noninfective gastroenteritis and colitis, unspecified; F17.200 Nicotine dependence, unspecified, uncomplicated; Z79.899 Other long term (current) drug therapy; Z88.8 Allergy status to other drugs, medicaments and biological substances; Z88.1 Allergy status to other antibiotic agents
CPT/HCPCS: 74176; 76705; 80048; 80076; 81001; 81025; 82150; 83690; 85025; 87086; 96361; 96374; 96375; 99284; J1885; J2405

== ENCOUNTER → 2019-03-16 | Outpatient (CLI) | payer BC, OTHER ==
--- NOTE | 2019-03-16 17:15 | REP ---
Four views left ankle: 03/16/2019. Indication: Pain following left ankle injury. Findings: There is no acute fracture, subluxation or dislocation. No erosive lesions of the visualized osseous structures are present. Impression: No acute fracture. Electronically Signed by Leandro Shipley DO 03/16/2019 05:06 P
== END ==
LOC: M LRY 16:38
PROVIDERS: ATTEND Nurse Practitioner Family
DX: S99.912A Unspecified injury of left ankle, initial encounter (principal); X58.XXXA Exposure to other specified factors, initial encounter; Y92.89 Other specified places as the place of occurrence of the external cause; Y99.9 Unspecified external cause status; Y93.9 Activity, unspecified

== ENCOUNTER 2019-12-03 11:19 | Emergency (ER) | payer OTHER ==
[~2019-12-03] VITALS: Ht 152.4 cm; Wt 64.0 kg
[2019-12-03] MEDS ORDERED: IBUP-1022 PO (11:59)
[2019-12-03] MEDS ORDERED: PRED20TA PO (12:40)
[2019-12-03] MEDS ORDERED: KETOROLAC 60MG 2ML VIAL IM ONE (13:00)
[2019-12-03 13:21] VITALS: BP 122/83
--- NOTE | 2019-12-03 13:50 | REP ---
LEFT SHOULDER THREE VIEWS: There is no evidence of an acute fracture, dislocation or intrinsic bone disease. IMPRESSION: No fracture or dislocation. Electronically Signed by Javi Pandya MD 12/05/2019 11:14 P
== END 2019-12-03 13:26 | disposition home or self-care (01) ==
LOC: M ED 11:19
DX: M25.512 Pain in left shoulder (principal); F17.200 Nicotine dependence, unspecified, uncomplicated; Z88.1 Allergy status to other antibiotic agents; Z88.8 Allergy status to other drugs, medicaments and biological substances
CPT/HCPCS: 73030; 96372; 99284; J1885

== ENCOUNTER 2022-03-22 19:32 | Emergency (ER) | payer BC, OTHER ==
[~2022-03-22] VITALS: Ht 152.4 cm; Wt 65.2 kg
[~2022-03-22 19:32] MED LIST: IBUP-1022 PO; PRED20TA PO
[2022-03-22 19:34] VITALS: BP 126/90
[2022-03-22] MEDS ORDERED: CLINDAMYCIN 150MG CAPSULE PO ONE (20:30)
[2022-03-22] MEDS ORDERED: PERCOCET 5MG/325MG TAB PO ONE (20:30)
[2022-03-22] MEDS ORDERED: PERC5TAB12 PO (20:35)
[2022-03-22] MEDS ORDERED: CLIN150C17 PO (20:35)
== END 2022-03-22 20:52 | disposition home or self-care (01) ==
LOC: M ED 19:32
DX: S02.5XXA Fracture of tooth (traumatic), initial encounter for closed fracture (principal); F17.200 Nicotine dependence, unspecified, uncomplicated; F12.10 Cannabis abuse, uncomplicated; Z88.1 Allergy status to other antibiotic agents

== ENCOUNTER 2023-03-06 17:01 | Emergency (ER) | payer OTHER ==
[~2023-03-06] VITALS: Ht 149.9 cm; Wt 62.6 kg
[~2023-03-06 17:01] MED LIST changes: +CLIN150C17 PO; +PERC5TAB12 PO
[2023-03-06] MEDS ORDERED: KETOROLAC 30 MG/ML 1ML VIAL IM ONE (20:25)
[2023-03-06] MEDS ORDERED: ARTICAINE HCL/EPINEPHRINE 4%-1:200,000 1.7ML INJ (SEPTOCAINE) SM ONE (20:25)
[2023-03-06] MEDS ORDERED: LIDOCAINE 2% W/ EPINEPHRINE 1.7 ML DENTAL INJ SM ONE (20:25)
[2023-03-06] MEDS ORDERED: BENZOCAINE 20% GEL 9GM TUBE (ANBESOL MAX STRENGTH) TOP ONE (20:25)
[2023-03-06] MEDS ORDERED: KETO10TAB PO (21:17)
[2023-03-06] MEDS ORDERED: CLIN150C17 PO (21:17)
[2023-03-06 21:25] VITALS: BP 116/17; TEMP 98.6; O2SAT 100
[2023-03-06] MEDS ORDERED: CLINDAMYCIN 150MG CAPSULE PO ONE (21:35)
== END 2023-03-06 21:47 | disposition home or self-care (01) ==
LOC: M ED 17:01
DX: K08.89 Other specified disorders of teeth and supporting structures (principal); K02.9 Dental caries, unspecified; Z88.1 Allergy status to other antibiotic agents; Z79.1 Long term (current) use of non-steroidal anti-inflammatories (NSAID); Z79.899 Other long term (current) drug therapy
CPT/HCPCS: 64400; 96372; 99283; J1885

== ENCOUNTER 2025-01-03 09:24 | Day surgery (SDC) | payer OTHER ==
[~2025-01-03] VITALS: Ht 152.4 cm; Wt 52.3 kg
[~2025-01-03 09:24] MED LIST changes: +KETO10TAB PO; +LIDOCAINE 2% 100 MG/5 ML SDV (FOR ANES.) As Ordered ONE; +MIDAZOLAM INJ 2 MG/2 ML VIAL As Ordered ONE; +VARE1TAB2 PO
[2025-01-03] MEDS ORDERED: LIDOCAINE 1% SDV 5 ML VIAL SC PRN (09:30)
[2025-01-03] MEDS ORDERED: ROCURONIUM BROMIDE 50MG/5ML VIAL As Ordered ONE (10:23)
[2025-01-03] MEDS ORDERED: dexAMETHasone 4 MG/ML 1 ML VIAL As Ordered ONE (10:25)
[2025-01-03] MEDS ORDERED: ACETAMINOPHEN 1000MG/100ML IV BAG As Ordered ONE (10:26)
[2025-01-03] MEDS: LR 1,000 ML IV SCH (10:30)
[2025-01-03] MEDS ORDERED: SUGAMMADEX SODIUM 200 MG/2 ML VIAL As Ordered ONE (11:03)
[2025-01-03] MEDS ORDERED: ONDANSETRON 4MG 2ML VIAL As Ordered ONE (11:03)
[2025-01-03] MEDS: METHYLENE BLUE 0.5% (5 MG/ML) 10 ML AMP As Ordered ONE (11:06)
[2025-01-03] MEDS: OXYMETAZOLINE 0.05% NASAL SPRAY As Ordered ONE (11:06)
[2025-01-03] MEDS: LIDOCAINE W/EPINEPHrine 1% 20 ML VIAL As Ordered ONE (11:10)
[2025-01-03] MEDS ORDERED: LR 1,000 ML IV SCH (11:45)
[2025-01-03] MEDS ORDERED: HYDROMORPHONE HCL 0.5 MG/0.5 ML SYRINGE IV PRN (11:45)
[2025-01-03] MEDS ORDERED: ONDANSETRON 4MG 2ML VIAL IV PRN (11:45)
[2025-01-03 13:25] VITALS: BP 104/58; TEMP 97.9; O2SAT 99
== END 2025-01-03 14:10 | disposition home or self-care (01) ==
LOC: M SDC 09:24
PROVIDERS: ATTEND Otolaryngology
DX: J32.0 Chronic maxillary sinusitis (principal); R09.81 Nasal congestion; F90.9 Attention-deficit hyperactivity disorder, unspecified type; F17.210 Nicotine dependence, cigarettes, uncomplicated; Z88.1 Allergy status to other antibiotic agents; Z88.2 Allergy status to sulfonamides; Z79.899 Other long term (current) drug therapy; Z88.0 Allergy status to penicillin
CPT/HCPCS: 31267; 81025; 87070; 87075; 87076; 87205; 88305; J0131; J1100; J2250; J2405; J3010; Q9968

== ENCOUNTER → 2025-04-06 | Outpatient (CLI) | payer OTHER ==
[~2025-04-06] MED LIST changes: -IBUP-1022 PO; +IBUP600T42 PO; -LIDOCAINE 2% 100 MG/5 ML SDV (FOR ANES.) As Ordered ONE; -MIDAZOLAM INJ 2 MG/2 ML VIAL As Ordered ONE
[2025-04-06 13:53] LABS: BASO # 0.0 10^3/uL (0.0-0.2); BASO % 0.0 % (0.0-1.0); EOS # 0.3 10^3/uL (0.0-0.5); EOS % 5.9 % (0.0-3.0); LYMPH # 1.2 10^3/uL (1.5-5.0); LYMPH % 23.8 % (24.0-44.0); MONO # 0.3 10^3/uL (0.0-0.8); MONO % 6.1 % (2.0-8.0); NEUTROPHILS # 3.1 10^3/uL (1.5-8.5); NEUTROPHILS % 64.0 % (36.0-66.0); PLATELET COUNT, AUTOMATED 183 10^3/uL (150-450)
[2025-04-06 13:54] LABS: C REACTIVE PROTEIN QUANTITATIV < 0.50 MG/DL (<1.0)
== END ==
LOC: M PLAIMG 09:55
PROVIDERS: ATTEND Otolaryngology
DX: J32.0 Chronic maxillary sinusitis (principal)